=== PATIENT | female | born 1985 | race Caucasian/White ===

== ENCOUNTER 2019-11-05 16:24 | Emergency (ER) | payer BC, SELFPAY ==
--- NOTE | ~2019-11-05 | XR_ITS ---
EXAMINATION: XR tibia fibula LT 2V EXAM DATE: 11/05/2019 17:13 INDICATION: Left leg pain, dog bite. TECHNIQUE: Left tibia/fibula frontal and lateral projections obtained and reviewed. Comparison is mad e to prior examination from 04/01/2012. FINDINGS: There is an old distal left tibial oblique fracture which has healed compared to 2011. The re is lower leg swelling and some subcutaneous gas from puncture wound or laceration. There are no ac klarissa fractures identified. No radiopaque foreign bodies identified. IMPRESSION: 1. Soft tissue injury. 2. Old distal tibial fracture. Reviewed, dictated and finalized at location A. STERED DIETITIAN
[2019-11-05 16:30] VITALS: BP 138/91; PULSE 68; RESP 16; TEMP 36.6; O2SAT 95
[2019-11-05] MEDS: TETANUS,DIPHTHERIA,AC PERTUSSIS ADULT 0.5 ML (ADACEL) IM (16:54)
--- NOTE | 2019-11-05 16:57 | PC.NURSE ---
Kasie kohler made aware of incident. Attempted to contact animal control. Animal control form faxed.
--- NOTE | 2019-11-05 17:57 | ED.ANIMALBIT ---
HPI - Animal Bite General Chief Complaint: Animal Bite Stated Complaint: dog bite Source: patient Mode of arrival: ambulatory Limitations: no limitations History of Present Illness HPI narrative: This is a 34-year-old female that presents with a dog bite to the left lower leg with 2 3 distinct puncture and her lacerations to the lateral and medial surface of her distal lower left leg gaping currently not bleeding there is some numbness secondary to inflammation is able to wiggle her toes has a good strong distal pedal pulse is. The dog is known to to the patient, they were walking along a bike trail and dog that was unprovoked approached a and a bit into her left lower leg. complaint: animal bite Onset (ago): hour(s) Animal: dog Description of animal: unknown animal Mechanism: bite Location - Extremities: Left: lower leg Pain description: burning Severity scale (1-10): 8 Context: unprovoked Associated symptoms: numbness Treatments prior to arrival: wound dressing(s), irrigation and FB removal Related Data Patient tetanus UTD: No Allergies Allergy/AdvReac Type Severity Reaction Status Date / Time No Known Allergies Allergy Verified 11/05/19 16:52 Review of Systems Review of Systems: All systems reviewed & are unremarkable except as noted in HPI and below PMFSH Past Medical History Medical History Patient denies medical problems Exam Const: General: no acute distress and alert Orientation/consciousness: patient oriented x3 HENMT: Head: normal to inspection Eyes: Conjunctivae: conjunctivae normal Pupils: Equal, round and reactive pupils present Neck: Neck: normal visual inspection Chest: Chest palpation & inspection: normal inspection of the chest Resp: Effort & Inspection: normal respiratory effort Cardio: Rate: regular rate Rhythm: regular rhythm GI: GI Palp: Yes Soft to palpation Back/Spine/Pelvis: Back: no CVA tenderness Skin: General skin exam: normal color Rashes: no rashes Neuro: General: patient oriented x3 and moves all extremities Extrem: Other: Three distinct gaping wounds left lower extremity approximately 5cm in length and each laceration Psych: Mental Status: mental status grossly normal Procedures Laceration Laceration 1: Date: 11/05/19 Time: 18:01 Site: lower extremity Side (If applicable): left Size (cm): 5 Description: linear Depth: simple, single layer Local Anesthetic: lidocaine 1% Pre-repair: wound explored, irrigated, irrigated extensively and minor debridement ====== Skin Level ====== Skin layer closed with: vicryl Size (cm): 3-0 Number of sutures: 19 Technique: simple, interrupted ====== Subcutaneous Layer ====== Subcutaneous layer closed with: vicryl Size: 3-0 ====== Muscle Layer ====== ====== Tendon Layer ====== Dressin distinct lacerations / puncture wounds left lower extremity to lateral and 1 medial all approximately 5 cm in length, the 2 lateral needed 6 sutures and the 1 medial needed 7 sutures with a total of 19 sutures placed. Patient tolerated the procedure well anesthesia local was was applied and patient did well with minimal blood loss. Critical Care Time Critical Care Time Critical Care Time: No Discharge Plan Discharge Clinical Impression: Puncture wound, Laceration Dog bite Qualifiers: Encounter type: initial encounter Qualified Code(s): W54.0XXA - Bitten by dog, initial encounter Patient Disposition: Home, Self-Care Condition: Stable Instructions: Antibiotic Form, Animal Bite (ED), Care For Your Stitches (ED), Laceration (ED) Additional Instructions: Follow-up with primary care physician in 10 days for suture removal, explained to patient to observe for any drainage from the suture sites are redness or any fevers. Take medicine as prescribe
[2019-11-05 18:18] VITALS: RESP 16; O2SAT 99
== END 2019-11-05 18:18 | disposition home or self-care (01) ==
PROVIDERS: Emergency Provider Emergency Medicine
DX: S81.832A Puncture wound without foreign body, left lower leg, initial encounter (principal); S81.812A Laceration without foreign body, left lower leg, initial encounter; W54.0XXA Bitten by dog, initial encounter
CPT/HCPCS: 12005; 73590; 90471; 90715; 99283

== ENCOUNTER 2019-11-13 11:33 | Outpatient (CLI) | payer BC, SELFPAY | END 2019-11-13 11:34 | disposition home or self-care (01) | LOC: CHSLAB 11:36 | PROVIDERS: PCP Internal Medicine; Visit Provider Internal Medicine | DX: L03.116 Cellulitis of left lower limb (principal) | CPT/HCPCS: 87070; 87075; 87205 ==

== ENCOUNTER 2019-11-14 13:08 | Outpatient (CLI) | payer BC, SELFPAY ==
[2019-11-14] MEDS: cefTRIAXone 1 GM VIAL IM ×2 (13:38)
[2019-11-14] MEDS: LIDOCAINE HCL 1% LOCAL INJ 10 ML VIAL 4.2 ML INFILTRATE (13:38)
--- NOTE | 2019-11-14 13:45 | PC.NURSE ---
Patient sent per Dr. Adams for OutPatient Rocephin 2 gm IM injection for left lower leg cellulitis. Reports had a IM injection yesterday in Dr. Adams's office and was to come here today and get it again. Order sent to [id number] for approval. Injection given. See MAR. Patient had no concerns on medication. Patient states, Dr. Adams office gave me information about it yesterday. Tolerated injections well. Safe exit of hospital.
== END 2019-11-14 13:09 | disposition home or self-care (01) ==
PROVIDERS: PCP Internal Medicine; Visit Provider Internal Medicine
DX: L03.116 Cellulitis of left lower limb (principal)
CPT/HCPCS: 96372; J0696

== ENCOUNTER 2021-09-30 16:31 | Emergency (ER) | payer BC, SELFPAY ==
[2021-09-30 18:00] VITALS: BP 136/102; PULSE 85; RESP 16; TEMP 36.3; O2SAT 99
--- NOTE | 2021-09-30 19:27 | ED.DENTAL ---
HPI - Dental/Oral General Chief complaint: Dental/Oral Stated complaint: bit inside of cheek Time Seen by Provider: 09/30/21 18:02 Source: patient and RN notes reviewed Mode of arrival: ambulatory Limitations: no limitations History of Present Illness HPI Narrative: pt accidentally bit the left inner cheek x this PM. no acute bleeding. Onset (ago): hour(s) (2) Duration: constant Severity: mild Severity scale (1-10): 4 Relieving factors: nothing Exacerbating factors: drinking fluids Related Data Home Medications Medication Instructions Recorded Confirmed alprazolam 0.25 mg PO DAILY 09/30/21 09/30/21 escitalopram oxalate 10 mg PO DAILY 09/30/21 09/30/21 norethindrone (contraceptive) 0.35 mg PO DAILY 09/30/21 09/30/21 nortriptyline 25 mg PO DAILY 09/30/21 09/30/21 Allergies Allergy/AdvReac Type Severity Reaction Status Date / Time No Known Allergies Allergy Verified 09/30/21 17:58 Review of Systems Review of Systems: All systems reviewed & are unremarkable except as noted in HPI and below PMFSH Past Medical History Medical History Laceration of cheek Patient denies medical problems Exam Const: General: no acute distress and alert Nutritional Appearance: well nourished Orientation/consciousness: patient oriented x3 Limitations: no limitations HENMT: Head: normal to inspection and laceration (left inner cheek 6.2 cm congealed laceration) General nose exam: Normal external nose present and Normal nares present Face and sinus: normal facial exam (minimally swollen left cheek) Mouth: Yes Abnormal oral and palatal mucosa present (left inner cheek laceration) laceration Eyes: Conjunctivae: conjunctivae normal Pupils: Equal, round and reactive pupils present EOM: EOMs intact bilaterally Neck: Neck: normal visual inspection Other: supple neck Chest: Chest palpation & inspection: normal inspection of the chest Resp: Effort & Inspection: normal respiratory effort Auscultation: clear to auscultation bilaterally Cardio: Rate: regular rate Rhythm: regular rhythm GI: Auscultation: normal bowel sounds : General: Yes bladder normal to palpation and Yes no CVA tenderness Back/Spine/Pelvis: Back: no CVA tenderness Skin: General skin exam: normal color Rashes: no rashes Neuro: General: patient oriented x3, moves all extremities, no meningeal signs, no focal motor deficits and CN's II-XI intact bilaterally Extrem: General: normal to inspection and no pedal edema Psych: Appearance: grossly normal and well kempt Mental Status: mental status grossly normal Affect: normal affect Attitude: cooperative Thought content: Yes Normal thought content present Course Course Emergency Course: Pt was stable and pain-free in the ED. Reevaluation(s) Reevaluation #1: VSS. less cheek pain. Date: 09/30/21 Time: 18:35 Vital Signs Vital signs: Vital Signs Temperature 36.3 C L 09/30/21 18:00 Pulse Rate 85 09/30/21 18:00 Respiratory Rate 16 09/30/21 18:00 Blood Pressure 136/102 H 09/30/21 18:00 Pulse Oximetry 99 09/30/21 18:00 Temperature 36.8 C 09/30/21 19:48 Pulse Rate 80 09/30/21 19:48 Respiratory Rate 18 09/30/21 19:48 Blood Pressure 142/88 H 09/30/21 19:48 Pulse Oximetry 88 L 09/30/21 19:48 MDM - Dental/Oral Differential Diagnosis Differential diagnosis: Likely aphthous ulcer Medical Records Attestation: I reviewed the patient's medical records. Critical Care Time Critical Care Time Critical Care Time: No Total Critical Care Time: 0 Discharge Plan Discharge Clinical Impression: Laceration of cheek Qualifiers: Encounter type: initial encounter Laterality: left Qualified Code(s): S01.412A - Laceration without foreign body of left cheek and temporomandibular area, initial encounter Patient Disposition: Home, Self-Care Condition: Stable Instructions: Antibiotic Form, Acute Dental Trauma (ED) Alejandro
--- NOTE | 2021-09-30 19:31 | PC.NURSE ---
Report given to KAIN Denise.
[2021-09-30 19:48] VITALS: BP 142/88; PULSE 80; RESP 18; TEMP 36.8; O2SAT 88
[2021-09-30] MEDS: cefTRIAXone 1 GM VIAL IM (19:53)
[2021-09-30] MEDS: IBUPROFEN 400 MG TABLET 800 MG PO (19:54)
== END 2021-09-30 19:54 | disposition home or self-care (01) ==
PROVIDERS: Emergency Provider Emergency Medicine; PCP Internal Medicine
DX: S01.412A Laceration without foreign body of left cheek and temporomandibular area, initial encounter (principal)
CPT/HCPCS: 96372; 99283; A9270; J0696

== ENCOUNTER 2023-07-31 15:38 | Outpatient (CLI) | payer OTHER, SELFPAY ==
--- NOTE | ~2023-07-31 | CT_ITS ---
EXAMINATION: CT IAC/mastoids BI wo con DATE: 07/31/2023 16:07 INDICATION: Right-sided hearing loss. TECHNIQUE: Computed tomography (CT) of the temporal bones was performed without intravenous contrast. Automated exposure control and iterative reconstruction technique were employed. The dose-length pro duct was 204.25 mGy-cm. COMPARISON: Head CT 04/20/2012 FINDINGS: RIGHT TEMPORAL BONE: The internal auditory canal, cochlea, vestibule, semicircular canals, vestibular aqueduct, carotid ca nal, jugular bulb, facial nerve course, ossicles, tympanic membrane, Prussak space, scutum, mastoid a ir cells, and external auditory canal are normal. LEFT TEMPORAL BONE: The internal auditory canal, cochlea, vestibule, semicircular canals, vestibular aqueduct, carotid ca nal, jugular bulb, facial nerve course, ossicles, Prussak space, scutum, tympanic membrane, mastoid a ir cells, and external auditory canal are normal. IMPRESSION: 1. Normal temporal bones. Reviewed, dictated and finalized at location A. TYPE MECHANIC IMPRESSION: 1. Normal temporal bones.
== END 2023-07-31 15:39 | disposition home or self-care (01) ==
LOC: CHSIMG 15:42
PROVIDERS: PCP Internal Medicine; Visit Provider Nurse Practitioner Family
DX: H91.90 Unspecified hearing loss, unspecified ear (principal); H92.01 Otalgia, right ear; S09.91XA Unspecified injury of ear, initial encounter
CPT/HCPCS: 70480

== ENCOUNTER 2024-06-28 13:02 | Outpatient (CLI) | payer OTHER, SELFPAY ==
--- NOTE | ~2024-06-28 | US_ITS ---
EXAMINATION: US pelvic complete w TV DATE: 06/28/2024 13:59 INDICATION: Excessive and frequent menstruation. TECHNIQUE: Multiple transabdominal and transvaginal sonographic images of the pelvis were obtained. COMPARISON: None. FINDINGS: TRANSABDOMINAL ULTRASOUND: The uterus measures 7.0 x 5.0 x 4.0 cm. There is no free fluid in the pelvis. TRANSVAGINAL ULTRASOUND: The endometrial complex measures 11 mm in thickness. The right ovary measures 3.0 x 2.0 x 1.8 cm. The left ovary measures 2.3 x 2.5 x 2.3 cm. There is normal vascular flow in the ovaries. IMPRESSION: 1. Normal pelvis. Reviewed, dictated and finalized at location B. IMPRESSION: 1. Normal pelvis.
== END 2024-06-28 13:03 | disposition home or self-care (01) ==
LOC: CHSIMG 13:13
PROVIDERS: PCP Internal Medicine; Visit Provider Obstetrics & Gynecology
DX: N92.0 Excessive and frequent menstruation with regular cycle (principal)
CPT/HCPCS: 76830; 76856

== ENCOUNTER 2025-04-28 10:47 | Outpatient (CLI) | payer OTHER, SELFPAY ==
[2025-04-28 11:01] LABS: Hematocrit 41.7 % (35.0-49.0); Hemoglobin 13.8 g/dL (12.0-15.0); Mean Corpuscular HGB Conc 33.1 g/dL (32-36); Mean Corpuscular Hemoglobin 29.6 pg (27.0-31.0); Mean Corpuscular Volume 89.5 fL (78.0-102.0); Platelet Count Result 260 K/mm3 (150-420); Red Blood Count 4.66 M/mm3 (4.20-5.40); White Blood Count 6.0 K/mm3 (4.8-10.8)
[2025-04-28 11:03] LABS: Add Urine Microscopic? YES; Appearance Urine Clear (Clear); Glucose Urine UA Negative (Negative); Leukocyte Esterase Ur Negative (Negative); Nitrate Urine Negative (Negative); Specific Grav Ur >= 1.030 (1.010-1.020)
[2025-04-28 11:51] LABS: Alanine Aminotransferase 17 U/L (6-35); Albumin Level 4.6 g/dL (3.5-5.1); Alkaline Phosphatase 30 U/L (38-126); Anion Gap 10 mmol/L (4-12); Aspartate Amino Transferase 24 U/L (14-36); Bilirubin,Total 0.8 mg/dL (0.2-1.3); Blood Urea Nitrogen 17 mg/dL (7-17); Calcium 9.7 mg/dL (8.4-10.2); Carbon Dioxide 27 mmol/L (22-30); Chloride 103 mmol/L (98-107); Cholesterol 217 mg/dL (0-200); Estimated Glomerular Filt Rate > 60; Glucose 98 mg/dL (65-110); HDL Direct 52 mg/dL; Osmolality Calculated 291 mOsm/kg (285-295); Potassium 4.7 mmol/L (3.4-5.0); Sodium 140 mmol/L (137-145); Total Protein 7.1 g/dL (6.3-8.2); Triglycerides 72 mg/dL (<150)
[2025-04-28 12:21] LABS: Thyroid Stimulating Hormone 1.660 uIU/mL (0.465-4.680)
== END 2025-04-28 10:48 | disposition home or self-care (01) ==
LOC: CHSLAB 10:52
PROVIDERS: PCP Internal Medicine; Visit Provider Internal Medicine
DX: Z00.00 Encounter for general adult medical examination without abnormal findings (principal); I10 Essential (primary) hypertension
CPT/HCPCS: 36415; 80053; 80061; 81001; 84443; 85027